=== PATIENT | male | born 1980 | race Two or more races ===

== ENCOUNTER 2021-04-08 08:06 | Emergency (ER) | payer OTHER ==
[~2021-04-08] VITALS: Ht 177.8 cm; Wt 72.6 kg
--- NOTE | 2021-04-08 08:09 | NUR ---
Note eun in EDM - 04/08/21 at 0936 by [email or web address] PT HAS PAIN AND SWELLING FROM A QWOUND THAT HAS PERSISTED FOR DAYS AND PAIN INCREASED TODAY. PT WOUND IS LOCATED ON RLE. PT IS A&OX4 AND STABLE. VITAL SIGNS WITHIN NORMAL LIMITS.
--- NOTE | 2021-04-08 08:09 | NUR ---
PT C/O PAIN AND SWELLING FROM A WOUND THAT HAS PERSISTED FOR DAYS; PAIN INCREASED TODAY. PT WOUND IS LOCATED ON RLE. PT IS A&OX4 AND STABLE. VITAL SIGNS WITHIN NORMAL LIMITS.
--- NOTE | 2021-04-08 08:18 | NUR ---
DR HEREDIA AT [facility].
[2021-04-08] MEDS ORDERED: LIDOCAINE 1%-EPI 1:100,000 20 ML VIAL ONE (08:59)
[2021-04-08] MEDS ORDERED: SULFAMETH/TRIMETH 800/160 MG 1 UDTAB TABLET PO ONE (09:00)
[2021-04-08] MEDS ORDERED: CEFTRIAXONE 1 G VIAL IM ONE (09:00)
--- NOTE | 2021-04-08 09:10 | NUR ---
PT REFUSED FOR DR HEREDIA TO MAKE AN INCISION TO DRAIN THE WOUND. ANTIBIOTICS WERE GIVEN.
[2021-04-08] MEDS ORDERED: SULFAMETH/TRIMETH 800/160 MG 1 UDTAB TABLET ONE (09:11)
[2021-04-08] MEDS ORDERED: CEFTRIAXONE 1 G VIAL ONE (09:11)
[2021-04-08] MEDS ORDERED: SULF1TAB48 PO (09:34)
[2021-04-08] MEDS ORDERED: CEPH500C2 PO (09:34)
--- NOTE | 2021-04-08 10:19 | NUR ---
Wound care provided.Patient discharged to home in stable condition. Written and verbal after care instructions given. Patient verbalizes understanding of instruction.
[2021-04-08 10:20] VITALS: BP 148/75
== END 2021-04-08 10:35 | disposition home or self-care (01) ==
LOC: ER 08:17
DX: L03.116 Cellulitis of left lower limb (principal); Z59.00 Homelessness unspecified
CPT/HCPCS: 76882; 96372; 99284; J0696; J3490